=== PATIENT | male | born 1990 | race Caucasian/White ===

== ENCOUNTER 2017-04-28 13:45 | Emergency (ER) | payer SELFPAY ==
[2017-04-28 14:06] VITALS: BP 143/84
--- NOTE | 2017-04-28 14:52 | ED Physician Documentation ---
Upper Respiratory Symptoms - HISTORIAN Historian: patient, spouse - HPI Stated Complaint: Cough Chief Complaint: Cough/ Upper Respiratory Additional Information: bronchitis like onset 5 days ago non prod no saul fever. child has same-on antibiotic and alb neb Onset: days ago (5) Duration: intermittent episodes Context: denies: recent foreign travel, insect bite(s) Severity: moderate Associated Symptoms: sweating. denies: fever, chills, runny nose, sinus pain - ROS CONST/EYES: denies: weakness, eye redness, eye itching CVS/RESP: shortness of breath (w/paroxysm cough) GI/: none NEURO/PSYCH: denies: fainting, dizziness MS/SKIN: denies: joint pain, muscle aches - PAST HX Lung Disease: none PE Risk Factors: none Surgeries/Procedures: none Immunizations: other (no flu vacc) Allergies/Adverse Reactions: Allergies Allergy/AdvReac Type Severity Reaction Status Date / Time No Known Allergies Allergy Unverified 04/28/17 14:00 Home Medications: Ambulatory Orders Medication Instructions Recorded Albuterol Sulfate 2 puff IH Q6H #1 inhaler 04/28/17 - SOCIAL HX Smoking History: non-smoker Alcohol Use: rarely Drug Use: none - FAMILY HX Family History: no significant history - VITAL SIGNS Vital Signs: Vital Signs Temp Pulse Resp BP Pulse Ox 98.4 F 94 H 18 143/84 97 04/28/17 14:45 04/28/17 14:45 04/28/17 14:45 04/28/17 14:45 04/28/17 14:45 - REVIEWED ASSESSMENTS Nursing Assessment Reviewed: Yes Vitals Reviewed: Yes Upper Respiratory Symptoms - EXAM General Appearance: mild distress EENT: eyes nml inspection Neck: normal inspection, supple Respiratory: no resp. distress, breath sounds nml, speaks full sentences. No: prolonged expirations, retractions, wheezes, rales, rhonchi Abdomen: non-tender CVS: reg rate & rhythm, heart sounds normal Skin: color nml, no rash, warm,dry. No: cyanosis, diaphoresis, pallor Neuro/Psych: oriented x3, mood/affect nml. No: disoriented, motor loss, sensory loss Discharge Clincal Impression: acute bronchitis Prescriptions: Albuterol Sulfate 2 puff IH Q6H #1 inhaler Referrals: Primary Doctor,No [Primary Care Provider] - 2 Days Comments: given alb neb and rx for azithromycin to hold rec not refill unless sy get sig worse Condition: Good Disposition: 01 HOME, SELF-CARE Decision to Admit: NO Decision Time: 14:56
== END 2017-04-28 14:45 | disposition home or self-care (01) ==
LOC: ED 13:45
DX: J20.9 Acute bronchitis, unspecified (principal)
CPT/HCPCS: 99283